=== PATIENT | male | born 1970 | race Caucasian/White ===

== ENCOUNTER 2016-11-24 10:59 | Day surgery (SDC) | payer MEDICARE ==
[2016-11-21 15:28] VITALS: BMI 33.4
[2016-11-24 11:23] VITALS: TEMP 98.1
[2016-11-24] MEDS ORDERED: LACTATED RINGERS 1,000 ML IV ONE (11:27)
[2016-11-24] MEDS ORDERED: LIDOCAINE 1% 20 ML VIAL (10MG/ML) FOR IV START INTRADERMA ONE (11:28)
[2016-11-24] MEDS ORDERED: PROPOFOL 10 MG/ML 20 ML VIAL IV ONE (11:54)
--- NOTE | 2016-11-24 12:06 | P.GSHP ---
History of Present Illness H&P Date: 11/24/16 Chief Complaint: Diarrhea This is a 46-year-old male who's had complaints of diarrhea for the last month. Patient states that he has a history of diverticulosis. He's had appears colonoscopy approximately 5 years ago at that time he had a polyp and was told that he had diverticulosis. Patient denies any significant pain or bleeding. - Constitutional Constitutional: Reports as per HPI Past Medical History Past Medical History: GERD/Reflux, Hypertension, Sleep Apnea/CPAP/BIPAP Additional Past Medical History / Comment(s): freq diarrhea and fatigue for approx 3 mos,urinary incontince,currently being fitted for cpap, Hx alpha I antitrysin dificiency,oral steroids Aug 2016 History of Any Multi-Drug Resistant Organisms: None Reported Additional Past Surgical History / Comment(s): wisdom teeth, vasectomy, colonoscopy,Pain clinic proc Past Anesthesia/Blood Transfusion Reactions: No Reported Reaction Past Psychological History: Anxiety, Bipolar, Depression Smoking Status: Never smoker Past Alcohol Use History: None Reported Past Drug Use History: None Reported - Past Family History Mother Family Medical History: Hypertension Father Family Medical History: Cancer Additional Family Medical History / Comment(s): skin Medications and Allergies Home Medications Medication Instructions Recorded Confirmed Type Cholecalciferol (Vitamin D3) 10,000 unit PO DAILY 11/21/16 11/24/16 History [Vitamin D3] Cyanocobalamin (Vitamin B-12) 3,000 mcg PO DAILY 11/21/16 11/24/16 History [Vitamin B12] Desmopressin [Ddavp] 0.2 mg PO HS 11/21/16 11/24/16 History Dicyclomine HCl 10 mg PO TID PRN 11/21/16 11/24/16 History Gabapentin [Neurontin] 300 mg PO TID 11/21/16 11/24/16 History HYDROcodone/APAP 5-325MG [Otisco 1 tab PO DAILY PRN 11/21/16 11/24/16 History 5-325] Metoprolol Succinate (ER) [Toprol 25 mg PO QAM 11/21/16 11/24/16 History Xl] Multivitamin [Men's Multi-Vitamin] 1 each PO DAILY 11/21/16 11/24/16 History Pravastatin Sodium [Pravachol] 40 mg PO HS 11/21/16 11/24/16 History Prazosin HCl 1 mg PO HS 11/21/16 11/24/16 History Ubidecarenone [Co Q-10] 100 mg PO DAILY 11/21/16 11/24/16 History Venlafaxine HCl [Effexor XR] 75 mg PO QAM 11/21/16 11/24/16 History clonazePAM [KlonoPIN] 1 mg PO QID 11/21/16 11/24/16 History traZODone HCL 50 mg PO HS 11/21/16 11/24/16 History Allergies Allergy/AdvReac Type Severity Reaction Status Date / Time Iodine and Iodide Containing Allergy Rash/Hives Verified 11/24/16 11:14 Produc lamotrigine [From Lamictal] Allergy Rash/Hives Verified 11/24/16 11:14 Surgical - Exam Vital Signs Temp Pulse Resp BP Pulse Ox 98.1 F 83 18 122/91 95 11/24/16 11:14 11/24/16 11:14 11/24/16 11:14 11/24/16 11:14 11/24/16 11:14 - General well developed, no distress - Eyes PERRL - ENT normal pinna - Neck no masses - Respiratory normal expansion - Cardiovascular Rhythm: regular - Abdomen Abdomen: soft, non tender Assessment and Plan Plan: Diarrhea. We'll perform colonoscopy to evaluate for possible colitis.
--- NOTE | 2016-11-24 12:15 | P.OP ---
Date of Procedure: 11/24/16 Preoperative Diagnosis: Diarrhea Postoperative Diagnosis: Sigmoid colon biopsy pathology pending No evidence of colitis Procedure(s) Performed: Colonoscopy Anesthesia: MAC Surgeon: Willian Perez Pathology: other (Sigmoid biopsy) Condition: stable Disposition: PACU Description of Procedure: PROCEDURE: The patient was placed on the endoscopy table in the lateral position. Digital rectal examination was performed which revealed no abnormalities. The prostate was symmetrical without nodules. Flexible colonoscope was then placed in the patient's anus and passed throughout the entire colon. The ileocecal valve was visualized. The cecum, ascending, transverse, descending and sigmoid colon were normal. A random biopsy the sigmoid colon was performed due to the patient's complaints of diarrhea. The rectum was normal as well. There were no masses, polyps or diverticula noted in the entire colon. SUMMARY OF FINDINGS: Normal colonoscopy.
[2016-11-24 12:21] VITALS: RESP 16
[2016-11-24 12:45] VITALS: BP 120/83; PULSE 67
== END 2016-11-24 13:10 | disposition home or self-care (01) ==
LOC: ORWHC2ENDO 10:59
PROVIDERS: ATTEND Surgery
DX: R19.7 Diarrhea, unspecified (principal); I10 Essential (primary) hypertension; F41.9 Anxiety disorder, unspecified; F31.9 Bipolar disorder, unspecified; M79.7 Fibromyalgia; G47.33 Obstructive sleep apnea (adult) (pediatric); Z88.8 Allergy status to other drugs, medicaments and biological substances; Z88.3 Allergy status to other anti-infective agents; Z79.899 Other long term (current) drug therapy; Z86.010 Personal history of colon polyps; Z87.19 Personal history of other diseases of the digestive system; Z82.49 Family history of ischemic heart disease and other diseases of the circulatory system
CPT/HCPCS: 45380; 88305; J2704